=== PATIENT | female | born 1965 | race Caucasian/White ===

== ENCOUNTER 2023-12-17 12:15 | Day surgery (SDC) | payer BC ==
[~2023-12-17] VITALS: Ht 152.4 cm; Wt 90.1 kg
[~2023-12-17 12:15] MED LIST: B COCAP4 PO; BACI1TAB20 PO; BIOT1000 PO; FLUO40CA PO; LOSA100T5 PO; OMEG1CAP83 PO; PRAV40TA2 PO
[2023-12-17] MEDS: NS 1,000 ML IV ONE (13:10)
[2023-12-17 13:40] VITALS: TEMP 97.4
[2023-12-17 13:55] VITALS: BP 154/83; O2SAT 99
== END 2023-12-17 14:05 | disposition home or self-care (01) ==
LOC: M OPP 12:15
PROVIDERS: ATTEND Internal Medicine Gastroenterology
DX: R19.5 Other fecal abnormalities (principal); Z80.0 Family history of malignant neoplasm of digestive organs; D12.2 Benign neoplasm of ascending colon; K64.8 Other hemorrhoids; K57.30 Diverticulosis of large intestine without perforation or abscess without bleeding; I10 Essential (primary) hypertension; Z79.02 Long term (current) use of antithrombotics/antiplatelets; Z79.899 Other long term (current) drug therapy